=== PATIENT | male | born 1965 | race Caucasian/White ===

== ENCOUNTER 2017-01-15 15:39 | Observation (INO) ==
--- NOTE | 2017-01-15 16:28 | Emergency Department Note ---
Weakness HPI - General Chief complaint: Weakness Stated complaint: Dehydration Time Seen by Provider: 01/15/17 16:18 Source: EMS Mode of arrival: EMS Limitations: no limitations - History of Present Illness HPI Narrative: 52-year-old male with a history of having laboratory test performed yesterday by his primary care provider Mary Doan was told to come by because he was dehydrated. His creatine had gone up from .7 to 1.3 His been having a history of chronic weakness on tobramycin for MRSA infection. He has no complaints. he states he feels dehydrated. Concern that the tobramycin may be contributing to the cr/bun - Related Data Home Medications Medication Instructions Recorded Confirmed multivitamin,[id number] 1 tab PO QDAY 08/15/15 01/15/17 tablet ferrous fumarate 325 mg (106 mg 325 mg PO BID 12/19/16 01/15/17 iron) tablet Previous Rx's Medication Instructions Recorded cyanocobalamin (vit B-12) 1,000 1,000 mcg IM QMONTH #6 ml 12/01/15 mcg/mL injection solution potassium chloride ER 10 mEq 20 meq PO QDAY 30 Days 07/30/16 capsule,extended release bupropion HCl SR 150 mg 150 mg PO QDAY #30 tab 09/10/16 tablet,sustained-release paroxetine 40 mg tablet 40 mg PO QDAY #30 tab 12/20/16 cholecalciferol (vitamin D3) 5,000 5,000 unit PO QDAY #30 cap 12/21/16 unit capsule baclofen 10 mg tablet 10 mg PO TID #90 tab 01/03/17 trazodone 50 mg tablet See Label Instructions PO HS #30 01/03/17 tab tobramycin 60 mg/50 mL in 0.9 % See Label Instructions IV Q24H #50 01/11/17 sodium chloride intravenous ml piggyback Allergies Allergy/AdvReac Type Severity Reaction Status Date / Time No Known Drug Allergies Allergy Verified 01/11/17 13:05 Review of Systems Constitutional: Denies: fever, chills Eyes: Denies: eye pain Respiratory: Denies: cough Gastrointestinal: Denies: abdominal pain, nausea Genitourinary: Denies: urgency, dysuria, frequency Musculoskeletal: Denies: back pain Integumentary: Denies: rash Neurological: Denies: headache Psychiatric: Denies: anxiety Endocrine: Denies: fatigue Hematological/Lymphatic: Denies: easy bleeding Past Medical History - Past Medical History Medical history: Reports: other (nxiety, depression, hypokalemia, MRSA, decubitus ulcer buttocks 5 years.) Surgical history ED: Reports: other (gastric bypass) Family history: Reports: cancer (mother lung cancer) - Social History smoking status: Smokeless tobacco Alcohol use: Reports: Occasionally Drug use: Reports: none Physical Exam - General Limitations: no limitations General appearance: alert, in no apparent distress - Head Head exam: atraumatic - Eye Eye exam: Present: normal appearance, PERRL - ENT ENT exam: normal exam, normal oropharynx - Neck Neck exam: Present: normal inspection, full ROM - Chest Chest inspection: Present: normal inspection, symmetric chest wall rise - Respiratory Respiratory exam: Present: normal lung sounds bilaterally, respiratory distress - Cardiovascular Cardiovascular exam: Present: regular rate, normal rhythm - Abdominal Exam Abdominal exam: Present: soft. Absent: distention, tenderness, guarding, rebound - exam: Present: normal inspection - Extremities Exam Extremities exam: Present: normal inspection, full ROM, tenderness - Back Exam Back exam: Present: normal inspection, full ROM, tenderness - Neurological Exam Neurological exam: Present: alert, oriented X3, CN II-XII intact - Psychiatric Psychiatric exam: Present: normal affect Course Vital Signs Temperature 97.6 F 01/15/17 15:41 Pulse Rate 65 01/15/17 15:41 Respiratory Rate 16 01/15/17 15:41 Blood Pressure 106/58 01/15/17 15:41 Pulse Oximetry (%) 100 01/15/17 15:41 Temperature 97.6 F 01/15/17 15:41 Pulse Rate 57 L 01/15/17 17:53 Respiratory Rate 18 01/15/17 17:53 Blood Pressure 103/58 01/15/17 17:53 Pulse Oximetry (%) 100 01/15/17 17:53 Weakness - MDM Narrative Medical decision making narrative: Cr had gone down to 1.1. Dr Estrada contacted and patient to be admitted. fluids have been given - Lab Data Result diagrams: 01/15/17 16:22 01/15/17 16:22 Lab Results 01/15/17 01/15/17 Range/Units 16:22 16:22 WBC 6.7 (4.5-11.0) K/mcL RBC 4.17 L (4.50-5.90) M/mcL Hgb 11.6 L (13.5-16.5) g/dL Hct 36.0 L (41.0-55.0) % MCV 86.3 (80.0-100.0) fL MCH 27.8 (26.0-34.0) pg MCHC 32.2 (31.0-36.0) g/dL RDW 16.2 H (11.5-14.5) % Plt Count 234 (140-440) K/mcL MPV 8.1 (7.4-10.4) fL Total Counted 100 Seg Neutrophils % 64 (38-78) % Band Neutrophils % 2 (0-10) % Lymphocytes % 14 L (15-49) % Monocytes % (Manual) 5 (1-9) % Eosinophils % (Manual) 8 H (0-7) % Metamyelocytes % 5 H (0-0) % Myelocytes % 2 H (0-0) % Platelet Estimate Normal (NORMAL) RBC Morphology Abnorm A (NORMAL) Anisocytosis 1+ A (NONE SEEN) Sodium 141 (133-145) mmol/L Potassium 3.7 (3.3-5.1) mmol/L Chloride 110 H (96-108) mmol/L Carbon Dioxide 16 L (22-30) mmol/L Anion Gap 15.0 (8-16) BUN 34 H (6-20) mg/dl Creatinine 1.1 (0.7-1.2) mg/dl GFR Calculation 77 Glucose 214 H (70-105) mg/dL Calcium 7.8 L (8.6-10.4) mg/dl Total Bilirubin 0.2 (0.0-1.0) mg/dL AST 8 (0-37) U/l ALT 12 (0-40) U/l Alkaline Phosphatase 91 (39-117) U/L Total Protein 6.9 (5.9-8.4) gm/dL Albumin 3.2 (3.2-5.2) gm/dL Globulin 3.7 (2.2-3.7) gm/dL Albumin/Globulin Ratio 0.9 L (1.0-2.3) Disposition Clinical Impression: Renal insufficiency Disposition: Xfer As Inpt ([facility]) Condition: Good Referrals: Pauline Doan, DNP, [employer] MANAGER [Primary Care Provider] -
[2017-01-15] MEDS ORDERED: 0.9 % SODIUM CHLORIDE 1,000 ML IV ONE (16:50)
[2017-01-15 17:11] LABS: Mean Cell Volume 86.3 fL (80.0-100.0); Mean Corpuscular HGB Conc 32.2 g/dL (31.0-36.0); Mean Corpuscular Hemoglobin 27.8 pg (26.0-34.0); Platelet Count 234 K/mcL (140-440); RBC 4.17 M/mcL (4.50-5.90); Red Cell Distribution Width 16.2 % (11.5-14.5)
[2017-01-15 17:32] LABS: ALT/SGPT 12 U/l (0-40); Albumin 3.2 gm/dL (3.2-5.2); Albumin/Globulin Ratio 0.9 (1.0-2.3); Alkaline Phosphatase 91 U/L (39-117); Blood Urea Nitrogen 34 mg/dl (6-20)
[2017-01-15 18:34] LABS: Anisocytosis 1+ (NONE SEEN); Band Neutrophils % 2 % (0-10); Eosinophils % (Manual) 8 % (0-7); Lymphocytes % 14 % (15-49); Metamyelocytes % 5 % (0-0); Monocytes % (Manual) 5 % (1-9); Myelocytes % 2 % (0-0); Platelet Estimate NORMAL (NORMAL); RBC Morphology ABNORM (NORMAL); Segmented Neutrophils % 64 % (38-78)
--- NOTE | 2017-01-15 19:59 | Internal Med History&Physical ---
Medical - H&P: HPI Patient information: Note initiated : 01/15/17 at 7:52 pm Service Date, if different from initiated Date: [] Patient: Faisal Parnell a 52 y/o M admitted on 01/15/17 for Dehydration. Chief Complaint: [] History of present illness: Mr. Parnell is a 52 year old male who presents to the ER after being called by his PCP for eval of abnormal labs The patient has h/o paraplegia, bladder incontinence. Initially treated by self cath, then spc cath, and later ended up having a cystectomy and a diverting urostomy/ Ileal conduit. He was being followed by Dr Jacob as an outpatient for same. Previous cultures positive for enterococcus/ pseudomonas and MRSA as per Dr Chiu note in 2014 The patient was seen by her PCP early this month, where in the patient had some symptoms of fatigue. The patient underwent a ua and urine culture which showed multi drug resistant bacteria. Pseudomonas / VRE / MRSA. The patient was started on Tobramycin for same. His levels checked a few days later showed that he had worsening renal function, with Creat of 0.3, and elevated tobra levels. The aptient was therefore asked to come to the ER The patient today denies any complaints. He notes he is not sure why the ua or urine culture was done, but it must be protocol. The patient however noted that he did have some foul smelling urine approx 10-12 days ago, and fever last week which self resolved. The patient also does not take good care of him self. In the ER today the patient has no issues except for tinnitus and drowsiness which he attributes to the tobramycin, his labs show elevated bun and creat of 1.1. He will be admitted for observation overnight for IV fluids. - Constitutional Constitutional: Absent: chills, fever(s), malaise - EENT Eyes: Absent: change in vision, decreased night vision Ears: Present: tinnitus Nose, mouth and throat: Absent: disequilibrium, dizziness - Cardiovascular Cardiovascular: Absent: chest pain, chest pain at rest, palpatations, paroxysmal nocturnal dyspnea - Respiratory Respiratory: Absent: cough, dyspnea, pain on inspirtation, chest congestion - Gastrointestinal Gastrointestinal: Absent: abdominal pain, constipation, diarrhea - Genitourinary Additional comments: ileal conduit. - Musculoskeletal Musculoskeletal: Present: arthralgias - Neurological Neurological: Present: focal weakness. 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) MRSA (methicillin resistant staph aureus) culture positive (Chronic) Malabsorption (Chronic) Pressure ulcer, buttock (Chronic) UTI (urinary tract infection) (Chronic) Wound of sacral region (Chronic) DM type 2 (diabetes mellitus, type 2) (Resolved) Obesity, morbid (Resolved) Sepsis (Resolved) Surgical history: Past Surgical History History of colostomy (Chronic) History of partial cystectomy (Chronic) History of spinal cord injury (Chronic) History of urostomy (Chronic) History of appendectomy (Resolved) History of gastric bypass (Resolved) History of hernia surgery (Resolved) Family history: reviewed and not pertinent Social history: lives with partner chews tobacco rare etoh denies recreational drugs. Medical - H&P: Meds Home Medications Medication Instructions Recorded Confirmed Type multivitamin,vb-fsen-[id number] 1 tab PO QDAY 08/15/15 01/15/17 History tablet cyanocobalamin (vit B-12) 1,000 1,000 mcg IM QMONTH #6 ml 12/01/15 01/15/17 Rx mcg/mL injection solution potassium chloride ER 10 mEq 20 meq PO QDAY 30 Days 07/30/16 01/15/17 Rx capsule,extended release bupropion HCl SR 150 mg 150 mg PO QDAY #30 tab 09/10/16 01/15/17 Rx tablet,sustained-release ferrous fumarate 325 mg (106 mg 325 mg PO BID 12/19/16 01/15/17 History iron) tablet paroxetine 40 mg tablet 40 mg PO QDAY #30 tab 12/20/16 01/15/17 Rx cholecalciferol (vitamin D3) 5,000 5,000 unit PO QDAY #30 cap 12/21/16 01/15/17 Rx unit capsule baclofen 10 mg tablet 10 mg PO TID #90 tab 01/03/17 01/15/17 Rx Tobramycin/Sodium Chloride 0 mg IV Q24H 01/15/17 History [Tobramycin 60 mg/50 ml Ns] traZODone HCL [Desyrel] 25 mg PO HS 01/15/17 01/15/17 History Allergies Allergy/AdvReac Type Severity Reaction Status Date / Time No Known Drug Allergies Allergy Verified 01/11/17 13:05 Medical - H&P: Exam - Constitutional Vitals: Temp Pulse Resp BP Pulse Ox 97.4 F L 51 L 16 118/70 100 01/15/17 19:28 01/15/17 19:28 01/15/17 19:28 01/15/17 19:28 01/15/17 19:28 General appearance: average body habitus, cooperative, no acute distress - Head Head exam: Present: atraumatic, normal inspection, normocephalic - Eye Eye exam: Present: PERRL. Absent: periorbital swelling, periorbital tenderness , scleral icterus - Neck Neck exam: Present: normal inspection - Respiratory Respiratory exam: Present: normal respiratory exam. Absent: accessory muscle use, rhonchi, stridor, wheezes - Cardiovascular Cardiovascular exam: Present: normal rate and rhythm, +S1, +S2 - GI/Abdominal GI/Abdominal exam: Present: normal bowel sounds, soft. Absent: mass, tenderness - Extremities Exam Additional comments: edema, deformed jessica lower extremities signs of old healed ulcers. - Neurological Exam Neurological exam: Present: alert, CN II-XII intact, oriented X3 - Psychiatric Psychiatric exam: Absent: agitated, anxious Medical - H&P: Reslt - Labs CBC & Chem 7: 01/15/17 16:22 01/15/17 16:22 Medical - H&P: A/P (1) Acute kidney injury Current visit: Yes Status: Acute (2) Dehydration Current visit: Yes Status: Acute (3) Colonization with multidrug-resistant bacteria Current visit: Yes Status: Acute (4) UTI (urinary tract infection) Problem details: 2008; Recurrent UTI, sometimes requiring hospitalization Current visit: No Status: Chronic - Narrative A/P Narrative: The patient baseline c reat is 0.7, increased to 1.3 and now 1.1, rise > 0.3, elevated BUn Treat with IV fluids, recheck creat in AM The patient has a ileal conduit and diverting urostomy. Given his h/o fever last week and foul smelling urine its plausible that the patient had a UTI, but he may also just be having a colonization. he is on tobramycin for pseudomonas , vre and MRSA. Given that he has tinnitus, I will hold this medication. Start him on zosyn and daptomycin. He already has a picc line. He will need ABX for total of 14 days, he has already completed 4-5 days on tobramycin. The patient will need to follow up with Dr Jacob for further eval. [facility] any other pathology.
[2017-01-15] MEDS: 0.9 % SODIUM CHLORIDE 1,000 ML IV SCH (20:00)
[2017-01-15] MEDS ORDERED: NALOXONE HCL 0.4 MG/ML VIAL IV PRN (20:03)
[2017-01-15] MEDS ORDERED: ONDANSETRON 4 MG/2 ML VIAL IV PRN (20:03)
[2017-01-15] MEDS ORDERED: ACETAMINOPHEN 325 MG TABLET PO PRN (20:03)
[2017-01-15] MEDS ORDERED: buPROPion 150 MG TAB.SR.12H PO SCH (21:00)
[2017-01-15] MEDS: PIPERACILLIN SODIUM/TAZOBACTAM 3.375 GM VIAL IV ONE ×2 (21:00→23:00)
[2017-01-15] MEDS ORDERED: PARoxetine 20 MG TABLET PO SCH (21:00)
[2017-01-15] MEDS: BACLOFEN 10 MG TABLET PO SCH (21:53)
[2017-01-15] MEDS: HEPARIN 5,000 UNIT/ML VIAL SQ SCH (21:53)
[2017-01-15] MEDS: DAPTOmycin 500 MG VIAL IV SCH (21:54)
[2017-01-15] MEDS ORDERED: traZODone HCL 50 MG TABLET PO PRN (22:00)
[2017-01-15] MEDS: 0.9 % SODIUM CHLORIDE 10 ML SYRINGE IV SCH (22:14)
[2017-01-16] MEDS: PIPERACILLIN SODIUM/TAZOBACTAM 3.375 GM in DEXTROSE 5% IN WATER 50 ML IV SCH ×3 (00:51→12:07)
[2017-01-16] MEDS: PIPERACILLIN SODIUM/TAZOBACTAM 3.375 GM VIAL IV ONE ×2 (00:52→05:10)
[2017-01-16] MEDS: 0.9 % SODIUM CHLORIDE 1,000 ML IV SCH ×2 (05:10→12:07)
[2017-01-16] MEDS: 0.9 % SODIUM CHLORIDE 10 ML SYRINGE IV SCH ×2 (05:11→13:15)
[2017-01-16 06:43] LABS: Mean Cell Volume 86.7 fL (80.0-100.0); Mean Corpuscular HGB Conc 32.1 g/dL (31.0-36.0); Mean Corpuscular Hemoglobin 27.9 pg (26.0-34.0); Platelet Count 236 K/mcL (140-440); RBC 3.89 M/mcL (4.50-5.90); Red Cell Distribution Width 16.3 % (11.5-14.5)
[2017-01-16 07:21] LABS: ALT/SGPT 11 U/l (0-40); Albumin 2.8 gm/dL (3.2-5.2); Albumin/Globulin Ratio 0.8 (1.0-2.3); Alkaline Phosphatase 82 U/L (39-117); Bilirubin,Direct < 0.2 mg/dL (0.0-0.3); Blood Urea Nitrogen 28 mg/dl (6-20); Gamma Glutamyl Transpeptidase 5 U/L (8-61); Magnesium 1.6 mg/dL (1.6-2.5); Phosphorous 3.3 mg/dL (2.7-4.5); Uric Acid 6.1 mg/dL (2.5-8.0)
[2017-01-16 07:57] LABS: Anisocytosis 1+ (NONE SEEN); Eosinophils % (Manual) 3 % (0-7); Lymphocytes % 20 % (15-49); Monocytes % (Manual) 10 % (1-9); Myelocytes % 2 % (0-0); Platelet Estimate NORMAL (NORMAL); RBC Morphology ABNORM (NORMAL); Segmented Neutrophils % 65 % (38-78)
[2017-01-16] MEDS ORDERED: POTASSIUM CHLORIDE 20 MEQ TABLET PO SCH (08:00)
--- NOTE | 2017-01-16 08:32 | Ultrasound Report ---
CLINICAL INFORMATION: Paraplegia. Previous cystectomy. TECHNIQUE: Grayscale and color flow spectral imaging COMPARISON: Previous examination dated 12/10/2014 FINDINGS: Right kidney measures 10.7 x 5.2 x 6.9 cm. No solid or cystic mass. No hydronephrosis. Normal sinus and cortical echoes. No detectable calculi. No acute or focal abnormality. No interval change. Left kidney measures 11.3 x 6.6 x 6.9 cm. There is left upper pole cortical thinning. No solid or cystic mass. No hydronephrosis. No detectable calculi. Sonographic appearance is essentially stable. Incidental note is made of a single gallstone. This measures approximately 17 mm. No gallbladder wall thickening or pericholecystic fluid. IMPRESSION: 1. No hydronephrosis. 2. Mild left upper pole cortical atrophy. No acute abnormality. Interpreted and Authenticated by: Cortes Peters 01/16/17
[2017-01-16] MEDS: BACLOFEN 10 MG TABLET PO SCH (08:39)
[2017-01-16] MEDS: HEPARIN 5,000 UNIT/ML VIAL SQ SCH (08:39)
[2017-01-16] MEDS ORDERED: buPROPion 150 MG TAB.SR.12H PO SCH (09:00)
[2017-01-16] MEDS ORDERED: PARoxetine 20 MG TABLET PO SCH (09:00)
[2017-01-16] MEDS ORDERED: VITAMIN D3 5,000 UNIT CAPSULE PO SCH (09:00)
--- NOTE | 2017-01-16 13:40 | Discharge Summary ---
Medical - DS: Prov Patient information: Note initiated : 01/16/17 at 1:31 pm Service Date, if different from initiated Date: [] Patient: Faisal Parnell 52 y/o M admitted on 01/15/17 for Dehydration/Renal Insufficiency. Chief Complaint: [] Date of admission: 01/15/17 19:18 Discharge date: 01/16/17 Primary care physician: [f_Reg Prim Care Provider] Admitting clinician: Jluis Estrada Discharging clinician: Jluis Estrada Medical - DS: Meds - Discharge Medications Prescriptions: DAPTOmycin [Daptomycin] 500 mg IV DAILY 7 Days Piperacillin Sodium/Tazobactam [Zosyn] 4.5 gm IV Q8H 7 Days Active and Home Medications: Home Medications multivitamin,qr-[id number]-[id number] tablet 1 tab PO QDAY 08/15/15 [History Confirmed 01/15/17 Last Taken Unknown] cyanocobalamin (vit B-12) 1,000 mcg/mL injection solution 1,000 mcg IM QMONTH # 6 ml 12/01/15 [Rx Confirmed 01/15/17 Last Taken Unknown] potassium chloride ER 10 mEq capsule,extended release 20 meq PO QDAY 30 Days [Rx Confirmed 01/15/17 Last Taken Unknown] bupropion HCl SR 150 mg tablet,sustained-release 150 mg PO QDAY #30 tab [Rx Confirmed 01/15/17 Last Taken Unknown] ferrous fumarate 325 mg (106 mg iron) tablet 325 mg PO BID 12/19/16 [History Confirmed 01/15/17 Last Taken Unknown] paroxetine 40 mg tablet 40 mg PO QDAY #30 tab 12/20/16 [Rx Confirmed 01/15/17 Last Taken Unknown] cholecalciferol (vitamin D3) 5,000 unit capsule 5,000 unit PO QDAY #30 cap 12/21 [Rx Confirmed 01/15/17 Last Taken Unknown] baclofen 10 mg tablet 10 mg PO TID #90 tab 01/03/17 [Rx Confirmed 01/15/17 Last Taken Unknown] Tobramycin/Sodium Chloride [Tobramycin 60 mg/50 ml Ns] 0 mg IV Q24H 01/15/17 [ History Last Taken Unknown] traZODone HCL [Desyrel] 25 mg PO HS 01/15/17 [History Confirmed 01/15/17 Last Taken Unknown] DAPTOmycin [Daptomycin] 500 mg IV DAILY 7 Days 01/16/17 [Rx Last Taken Unknown] Piperacillin Sodium/Tazobactam [Zosyn] 4.5 gm IV Q8H 7 Days 01/16/17 [Rx Last Taken Unknown] Medical - DS: Hosp Hospital course: Mr. Parnell is a 52 year old male with h/o paraplegia, who was admitted to the hospital because of worsening renal function on tobramycin and dehydration. complicated UTI- Noted Urine culture done as outpatient. Pt was being treated with Tobramycin for same. Pt had tinnitus, as well as worsening renal function. patient tobramycin was discontinued, he will be switched over to daptomycin and zosyn to cover for Pseudomonas, VRE and MRSA in the urine. He will complete 7 more days of treatment as outpatient at home. Antibiotics being set up via [facility]. The patient has had these organism in the past as chr contaminants. Given the ileal conduit, he will always grow these organisms. Consider Urine culture only if there is strong suspicion of UTI. Pt advised to follow up with Dr Jacob his urologist as outpatient. He underwent a Renal sonogram which was negative. Incidental Gall stone noted .Pt is asymptomatic for same. Educated that should he develop symptoms in future, he will have to have his gb removed. Dehydration- Treated with IV fluids, with improvement in renal function and BUN. Patient is able to tolerate po well, advised to increase fluid intake. He will follow up with Dr Whitehead for his chr wound care. The rest of his hospital stay was uneventful. No changes in home meds except stopping of tobramycin. Discharge diagnosis: Complicated UTI - Time Spent with Patient Total time spent providing and/or coordinating discharge services: Less than 30 minutes Medical - DS: Exam - Constitutional Vitals: Vital Signs Temp Pulse Resp BP Pulse Ox 01/16/17 11:47 16 91 01/16/17 08:00 16 110/64 91 01/16/17 04:00 98.1 F 62 14 98/58 96 01/16/17 00:00 97.4 F L 61 16 118/68 100 01/15/17 19:28 97.4 F L 51 L 16 118/70 100 Intake and Output 01/15/17 01/16/17 01/16/17 21:59 05:59 13:59 Intake Total 1800 / 1800 867 / 867 Output Total 900 / 900 Balance 900 / 900 867 / 867 Intake: IV 1000 / 1000 867 / 867 Sodium Chloride 0.9% 1, 1000 / 1000 867 / 867 000 ml @ 125 mls/hr IV . Q8H [facility] Rx#:[id number] Oral 800 / 800 Output: Urine Catheter Amount 900 / 900 Other: Weight 184 lb Additional comments: Constitutional; Afebrile, cooperative, alert, not in distress. Eyes- No icterus, Pupils equal, reactive, No periorbital swelling Ears- Ext ear normal, hearing normal to conversation. Neck- Midline trachea, supple Respiratory system: Air Entry equal on both sides, No crackles or wheezing, no rhonchi. CVS- Rate rhythm regular, S1,S2 heard, no gallop, no rub. Abdomen- Soft nontender abdomen,colostomy and urostomy noted, clear urine draining in the bag. [employer]- AOOx3, moving uper extremities, paraplegic, Medical - DS: Data Labs on day of discharge: Labs from last 24 hours 01/16/17 01/16/17 04:40 04:40 WBC 7.7 RBC 3.89 L Hgb 10.8 L Hct 33.7 L MCV 86.7 MCH 27.9 MCHC 32.1 RDW 16.3 H Plt Count 236 MPV 7.7 Total Counted 100 Seg Neutrophils % 65 Band Neutrophils % Not Reportable Lymphocytes % 20 Monocytes % (Manual) 10 H Eosinophils % (Manual) 3 Myelocytes % 2 H Platelet Estimate Normal RBC Morphology Abnorm A Anisocytosis 1+ A Sodium 145 Potassium 3.4 Chloride 114 H Carbon Dioxide 16 L Anion Gap 15.0 BUN 28 H Creatinine 0.9 GFR Calculation 98 Glucose 47 L Uric Acid 6.1 Calcium 7.4 L Phosphorus 3.3 Magnesium 1.6 Total Bilirubin < 0.2 Direct Bilirubin < 0.2 GGT 5 L AST 9 ALT 11 Alkaline Phosphatase 82 Lactate Dehydrogenase 144 Total Protein 6.2 Albumin 2.8 L Globulin 3.4 Albumin/Globulin Ratio 0.8 L Triglycerides 143 Medical - DS: A/P - Patient/Caregiver Discharge Instructions Activity: increase activity as tolerated Diet: Consistent Carbohydrate Additional Instructions: You need antibiotics for additional 7 days. Please increase your water intake, and keep yourself well hydrated. Follow up with PCP in 7 days Follow up with Urology in 7-14 days Patient will need to be transferred via ambulance. Prescriptions: DAPTOmycin [Daptomycin] 500 mg IV DAILY 7 Days Piperacillin Sodium/Tazobactam [Zosyn] 4.5 gm IV Q8H 7 Days - Problem Maintenance (1) Acute kidney injury Status: Acute (2) Dehydration Status: Acute (3) Colonization with multidrug-resistant bacteria Status: Acute (4) UTI (urinary tract infection) Status: Chronic Comment: 2008; Recurrent UTI, sometimes requiring hospitalization Qualifiers: Urinary tract infection type: catheter-associated UTI Encounter type: initial encounter - Follow up Plan Follow up with: Pauline Doan, MIRNA, DIRECTOR OF SOCIAL SERVICES [Primary Care Provider] - Disposition: Home Health Service Prognosis: Fair Rehab Potential: Fair I certify that the patient requires SNF services: No Overall status at discharge: patient is back to baseline Medical - DS: Qual - VTE Deep Vein Thrombosis/Pulmonary Embolism Present on Admission: No
[2017-01-16] MEDS: DAPTOmycin 500 MG VIAL IV SCH (13:59)
== END 2017-01-16 14:42 | disposition home health service (06) ==
LOC: ED 15:39 → MEDSUR 15:39
PROVIDERS: ADMIT Internal Medicine; ATTEND Internal Medicine